=== PATIENT | female | born 1965 | race Caucasian/White ===

== ENCOUNTER → 2024-05-02 | Outpatient (CLI) | payer MEDICAID, SELFPAY ==
--- NOTE | 2024-05-02 15:30 | XR_ITS ---
Examination: MRI lumbar spine without contrast Date and time of exam: May 02, 2024 1615 hrs. Indications: Low back pain radiating to the right leg beginning January 2024 Technique: Multiple MRI axial and sagittal sections lumbar spine. Sagittal T2-weighted images, TR 3500, TE 118 T1 weighted transverse sections, TR 688 T8.5, T2-weighted sagittal sections T1 weighted sagittal sections TR 621, TE 30 T2 axial sections, TR 4, 190, TE 84. Findings: Adequate alignment lumbar vertebral bodies on the lateral view Diffuse [id number] lumbar disc narrowing, most prominent L4-L5, L5-S1 No spondylolisthesis L5-S1 5 mm central right paracentral disc bulge contiguous with the right S1 nerve root L4-L5 4 mm central lumbar disc bulge L3-L4 3 mm central lumbar disc bulge L2-L3 no disc protrusion L1-L2 no disc protrusion Impression: L5-S1 5 mm central right paracentral disc bulge contiguous with the right S1 nerve root L4-L5 4 mm central lumbar disc bulge L3-L4 3 mm central lumbar disc bulge
== END | disposition home or self-care (01) ==
LOC: SMRI 15:17
PROVIDERS: PCP Family Medicine; Referring Provider Family Medicine; Visit Provider Family Medicine
DX: M51.379 Other intervertebral disc degeneration, lumbosacral region without mention of lumbar back pain or lower extremity pain (principal); M51.369 Other intervertebral disc degeneration, lumbar region without mention of lumbar back pain or lower extremity pain
CPT/HCPCS: 72148

== ENCOUNTER 2024-05-06 09:00 | Outpatient (RCR) | payer MEDICAID, SELFPAY ==
--- NOTE | 2024-04-28 09:04 | PTNOTE_ITS ---
PT OP Initial Eval Patient Information Outpatient Physical Therapy Treatment Date: 04/28/24 Visit Reasons: BACK PAIN Medical Diagnosis: M54.31 Treatment Dx #1: Back Pain Start of Care: 04/28/24 Date of Onset: 3 months ago Smoking Status Smoking Status: Current every day smoker (yes) Cessation Counseling Provided: ALEJANDRINA was advised that quitting smoking is the single most important factor to protect the health of themselves and their family. Discussed the benefits of quitting smoking with patient. Encouraged patient to quit smoking and provided Cessation assistance materials and resources. Tobacco Use: Cigarette Years smoked: 20 Are you interested in quitting?: No Would you like additional Smoking Cessation Counseling?: No Initial Assessment Subjective: Pt is a 58 y/o female reports of chronic back pain (12/14) with right LE numbness and tingling. Pt is pending MRI on the 05/02. Pt has limitation with sitting, standing, chores, self care, cooking, cleaning, and performing recreational activities. Objective: L/S AROM: all motions are WFL with end range pain into extension Hip PROM: all motions are WFL except IR bilaterally Hip MMTs: grossly 3/5 Special Test (+) slump (+) SLR Assessment: Pt demonstrate back pain consistent with possible disc involvement leading to difficulty with ADLs. Pt will benefit from physical therapy to increase ROM, strength, and work on mobility. Short Term and Senior Care Goals 1) Increase L/S AROM WNL in 6 wks to be able to perform chores 2) Decrease back pain to 2/10 in 6 wks to be able to sit and stand more than 30 mins 3) Increase core strength WFL in 6 wks to be able to perform recreational activities 4) Increase hip MMTs grossly to 4-/5 in 6 wks to be able to walk more than 30 mins 5) Indep with HEP Treatment Plan 1) Manual Therapy 2) Therapeutic Activities 3) Therapeutic Exercises 4) Modalities (ice, heat, traction) Frequency and Duration: 2 x wk for 6 wks Certification Dates: 04/28/24 to 07/27/24 Procedure Charges OP PT Eval Mod Complex 30 minutes: Yes
--- NOTE | 2024-05-06 12:07 | PT.ODAYNRPT ---
PT Outpatient Daily Note OP Daily Note Outpatient Physical Therapy Treatment Date: 05/06/24 Visit Reasons: BACK PAIN Subjective: Pt's back is okay no new concerns to report. Objective: Please see flow chart for list of ther ex performed Assessment: tolerate exercises performed with minimal pain Plan: Continue with PT Length of Time (minutes) of Treatment: 30 Minutes Procedure Charges Therapeutic Exercise 30 minutes: Yes
== END 2024-05-06 23:59 | disposition home or self-care (01) ==
LOC: CPTX 09:00
PROVIDERS: PCP Family Medicine; Referring Provider Family Medicine; Visit Provider Family Medicine
DX: M54.41 Lumbago with sciatica, right side (principal)
CPT/HCPCS: 97110; 97162

== ENCOUNTER 2024-05-15 09:30 | Outpatient (RCR) | payer MEDICAID, SELFPAY ==
--- NOTE | 2024-05-13 11:00 | PT.ODAYNRPT ---
PT Outpatient Daily Note OP Daily Note Outpatient Physical Therapy Treatment Date: 05/13/24 Visit Reasons: Back pain Subjective: Pt's back pain is better and moving more with less pain. Objective: Please see flow chart for list of ther ex performed Assessment: progressing with supine exercises with less pain reported. Less cues today to correct form Plan: Continue with PT Length of Time (minutes) of Treatment: 30 Minutes Procedure Charges Therapeutic Exercise 30 minutes: Yes
--- NOTE | 2024-05-15 11:31 | PT.ODAYNRPT ---
PT Outpatient Daily Note OP Daily Note Outpatient Physical Therapy Treatment Date: 05/15/24 Visit Reasons: Back pain Subjective: Pt's back is better and really feels that physical therapy is helping. Objective: Please see flow chart for list of ther ex performed Assessment: progressing with back exercises added more core exercises with less pain reported Plan: Continue with PT Length of Time (minutes) of Treatment: 30 Minutes Procedure Charges Therapeutic Exercise 30 minutes: Yes
--- NOTE | 2024-06-26 11:58 | PT.ODS1RPT ---
PT OP Progress/Discharge Note Date of Service: 06/26/24 Progress Note/DC Note Progress Note/Discharge Note: DC Note Patient Information Visit Reasons: Back pain Service Discharge Date: 06/26/24 Status Assessment: Pt has been seen for 4 visits (eval + 3 visits). Pt last treated on 05/15/24 and no showed 05/27/24 appt. Pt called to cx all pending PT appts due to not helping. Pt d/c from care per Pt's request and did not meet set goals in therapy; thank you for your referrals
== END 2024-06-06 23:59 | disposition home or self-care (01) ==
LOC: CPTX 09:30
PROVIDERS: PCP Family Medicine; Referring Provider Family Medicine; Visit Provider Family Medicine
DX: M54.31 Sciatica, right side (principal)
CPT/HCPCS: 97110

== ENCOUNTER → 2024-08-25 | Outpatient (CLI) | payer MEDICAID, SELFPAY ==
--- NOTE | 2024-08-25 12:09 | XR_ITS ---
Examination: Bilateral hands, 6 views. Technique: AP, Oblique, Lateral each hand total 6 views Date and time of exam: August 25, 2024 1325 hours INDICATIONS: Bilateral hand pain years Findings: Old fracture deformity base right first metacarpal Moderate osteoarthritis right first carpometacarpal joint Mild osteoarthritis distal interphalangeal joints second through fifth digits right hand and interphalangeal joint first digit Advanced osteoarthritis left first carpometacarpal joint Mild osteoarthritis distal interphalangeal joints second through fifth digits and interphalangeal joint first digit No erosive arthritis No acute fractures IMPRESSION: Osteoarthritis as above, most severe left first carpometacarpal joint
--- NOTE | 2024-08-25 12:09 | XR_ITS ---
Examination: Bilateral wrists 6 views TECHNIQUE: AP oblique lateral each wrist total 6 views Exam date and time: August 25, 2024 1326 hours INDICATIONS: Bilateral wrist pain several years. FINDINGS: Moderate osteopenia Old fracture deformity base right first metacarpal with moderate osteoarthritis first carpometacarpal joint No acute right wrist fracture Advanced left wrist first carpometacarpal joint osteoarthritis No acute fracture IMPRESSION: Old fracture deformity right first metacarpal Moderate osteoarthritis right first carpometacarpal joint Advanced left first carpometacarpal joint osteoarthritis
== END | disposition home or self-care (01) ==
PROVIDERS: PCP Nurse Practitioner Gerontology; Referring Provider Nurse Practitioner Gerontology; Visit Provider Nurse Practitioner Gerontology
DX: M79.641 Pain in right hand (principal); M19.032 Primary osteoarthritis, left wrist; M19.031 Primary osteoarthritis, right wrist; M18.12 Unilateral primary osteoarthritis of first carpometacarpal joint, left hand; Z87.81 Personal history of (healed) traumatic fracture
CPT/HCPCS: 73110; 73130